=== PATIENT | female | born 1990 | race Hispanic/Latino ===

== ENCOUNTER 2017-09-12 01:55 | Inpatient (IN) | payer OTHER, MEDICAID ==
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
[2017-09-12] MEDS ORDERED: Emtricitabine-Tenofovir 200 mg-300 mg Tab PO STA (06:45)
[2017-09-12] MEDS ORDERED: Emtricitabine-Tenofovir 200 mg-300 mg Tab PO NR (06:45)
[2017-09-12] MEDS ORDERED: cefTRIAXone (Rocephin) 250 mg Inj IM STA (06:45)
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
[2017-09-12 07:27] LABS: RBC URINE < 1 /hpf (0-3); URINE BACTERIA RARE (<OCC); URINE BILIRUBIN NEGATIVE (NEGATIVE); URINE BLOOD NEGATIVE (NEGATIVE); URINE COLOR STRAW (YELLOW); URINE GLUCOSE (UA) NEG (Normal); URINE KETONE NEGATIVE (NEGATIVE); URINE LEUKOCYTE ESTERASE NEG Leu/uL (Negative); URINE PROTEIN NEGATIVE (NEGATIVE); URINE UROBILINOGEN 0.2-1.0 mg/dL (0.2-1.0); WBC URINE < 1 /hpf (0-5)
--- NOTE | 2017-09-12 08:35 | CT ---
PROCEDURE: CT HEAD WITHOUT CONTRAST. HISTORY: head injury, headache COMPARISON: None available. TECHNIQUE: Axial computed tomography images were obtained through the head/brain without intravenous contrast. Radiation dose: Total exam DLP = 956.37 mGy-cm. This CT exam was performed using one or more of the following dose reduction techniques: Automated exposure control, adjustment of the mA and/or kV according to patient size, and/or use of iterative reconstruction technique. FINDINGS: HEMORRHAGE: No intracranial hemorrhage. BRAIN: No mass effect or edema. No atrophy or chronic microvascular ischemic changes. VENTRICLES: Unremarkable. No hydrocephalus. CALVARIUM: Unremarkable. PARANASAL SINUSES: Minimal chronic ethmoid, sphenoid and left maxillary sinusitis. MASTOID AIR CELLS: Unremarkable as visualized. No inflammatory changes. OTHER FINDINGS: None. IMPRESSION: No intracranial mass, hemorrhage or evidence of acute infarct. Preliminary interpretation of this examination was reported by [facility] at 3:16 a.m. on 09/12/2017. There is concurrence of this report with the preliminary interpretation.
[2017-09-12] MEDS ORDERED: cefTRIAXone (Rocephin) 250 mg Inj ONE (08:40)
[2017-09-12 09:04] VITALS: O2SAT 98
[2017-09-12] MEDS ORDERED: Magnesium Hydroxide Susp 30 ml UD PO PRN (13:19)
[2017-09-12] MEDS ORDERED: Alum-Mag Hydrox-Simethicone Susp (30 mL) PO PRN (13:19)
[2017-09-12] MEDS ORDERED: DiphenhydrAMINE 50 mg/ml Inj IM PRN (13:19)
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
[2017-09-12 16:27] LABS: T4 11.6 ug/dl (5.5-11.0)
[2017-09-12 16:41] LABS: THYROID STIMULATING HORMONE 1.1 mIU/ML (0.46-4.68)
--- NOTE | 2017-09-12 18:22 | PCM.BM ---
<Sherin Catalan - Last Filed: 09/12/17 18:21> Treatment Plan Problems - Problems identified on initial assessmt Problem 1 Assessment reference: NA feelings of worthlessness Assessment reference: NA Treatment assets and liabiliti Patient Assests: adapts well, cooperative, resourceful, self-reliant, ADL independent Patient Liabilities: financial problems, poor support system, relationship conflicts, substance abuse, legal issue - Milieu Protocol Maintain good personal hygiene: daily Encourage regular showers, daily Remind patient to perform daily oral care Conduct patient checks and document Observation sheet: Q15 minutes Maintain personal safety: every shift Educate patient to report safety concerns to staff, every shift Monitor environment for contraband/sharps Medication safety: Monitor for expected outcome, potential side effects: every shift, Assess barriers to learning: every shift, Assess readiness for medication education: every shift Milieu Narrative: start pt on clonidine protocol monitor for symptoms of withdrawal start seroquel 200mg with plan to titrate gradually motivational and supportive therapy Discharge/Continuing Care - Treatment Team Participation Patient/Family/SO Statement: start pt on clonidine protocol monitor for symptoms of withdrawal start seroquel 200mg with plan to titrate gradually motivational and supportive therapy <Talita Mccarthy Estefany - Last Filed: 09/16/17 11:27> - Diagnosis (1) Depression Status: Acute Interventions: 09/16/17 11:28 psychotherapy, pharmacotherapy <Laila Norman - Last Filed: 09/16/17 17:02> Treatment assets and liabiliti Patient Assests: adapts well, cooperative, resourceful, self-reliant, ADL independent, physically healthy, negotiates basic needs, cognitively intact Patient Liabilities: live alone (patient is homeless), financial problems, poor support system, relationship conflicts, substance abuse, legal issue Family Contact Family involvement: Family/SO is involved Family contact: Patient agrees to contact, Family has been contacted by patient , Telephone contact initiated by staff Family contact name: ([phone]) Family contacted how many times per week?: 2 Family contact comment: Pad Making Machine Operator spoke with patients sister (Sarah ) to discuss patients progress on 3NP, discharge of 09/16 and aftercare. Pad Making Machine Operator informed patients sister that patient was not agreeable to remaining on 3NP awaiting aftercare. Pad Making Machine Operator emphasized importance of patient securing aftercare (contact information provided at discharge) to reduce risk of future hospitalizations and ensure safety/functioning in the community. Patients sister expressed understanding of the above, denied concerns regarding patients discharge and confirmed that patient will be staying with her temporarily upon discharge. - Goals for Treatment Patient goals for treatment: Patient to continue stabilization on 3NP through medication management and group/supportive therapy. Patient to be encouraged to attend groups regularly to promote self-awareness, sobriety, and improve insight , coping skills and self-esteem. Patient to be provided with referral for appropriate level of aftercare to reduce risk of future hospitalizations and ensure safety in the community. Discharge/Continuing Care - Education Needs Education Needs: Family Medication, Family Coping Skills, Family Community resources, Family Aftercare Safety Plan, Patient Medication, Patient Coping Skills, Patient Community resources, Patient Aftercare Safety Plan - Discharge Discharge Criteria: Tolerates medication w/o severe side effects, Free of Suicidal thoughts, Normal sleep pattern, Ability to care for self, No longer exhibiting s/s of withdrawal, Reduction of target symptoms Discharge to:: Home, With Family (patient will stay with sister temporarily ( currently homeless)) - Treatment Team Participation Discussed with Family/SO: Yes Was Patient/Family/SO present at Treatment Team Meeting: Yes
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
[2017-09-13 09:27] LABS: CHOLESTEROL 130 mg/dL (0-199)
--- NOTE | 2017-09-13 18:02 | PCM.PYCHPN ---
Psychiatric Progress Note - Psychiatric Progress Note Patient seen today, length of contact: PT EVALUATED DISCUSSED WITH TEAM CHART REVIEWED Patient Chief Complaint: Ii STILL FEEL DOWN Problems Identified/Issues Discussed: PT SEEN IN BED, ISOLATIVE , ANHEDONIC, LOW ENERGY, DEPRESSED MOOD AND AFFECT DENIED ANY CURRENT S/H I DENIED PERCEPTUAL DISTURBANCES, NO REPORTED SIDE EFFECTS OF MEDICATIONS Medical Problems: pt reported multiple inpatient psychiatric hospitalizations pt has two previous suicidal attempts by overdose and attempting to jump of the bridge hx of self mutilating behaavior DSM 5 Symptoms Update: BIPOLAR DEPRESSION BORDERLINE PERSONALITY OPIATE USE DISORDER ALCOHOL USE DISORDER Medication Change: No Medical Record Reviewed: Yes Mental Status Examination - Cognitive Function Orientation: Person, Place Attention: WNL Concentration: WNL Association: WNL Fund of Knowledge: Poor - Mood Mood: Depressed, Anxious - Affect Affect: Constricted, Depressed - Speech Speech: Soft - Formal Thought Process Formal Thought Process: Circumstantial Psychotic Thoughts and Behaviors: DENIED PERCEPTUAL DISTURBANCES, NON ELICITED - Suicidal Ideation Suicidal Ideation: No - Homicidal Ideation Homicidal Ideation: No Goal/Treatment Plan - Goal/Treatment Plan Progress Toward Problem(s) and Goals/Treatment Plan: continue with clonidine and ativan and monitor pt for symptoms and signs of withdrawal continue seroquel 200mg with plan to titrate gradually motivational and supportive therapy Estimated Date of D/C: 09/17/17
--- NOTE | 2017-09-14 11:20 | PCM.PYCHPN ---
Psychiatric Progress Note - Psychiatric Progress Note Patient seen today, length of contact: PT EVALUATED DISCUSSED WITH TEAM CHART REVIEWED Patient Chief Complaint: pt annetta remained very depressed,aloof,withdrawn isolating herself in room.pt is able to contract for [employer] but remains with poor insight and need stabilization. DSM 5 Symptoms Update: major depression Medication Change: No Medical Record Reviewed: Yes Mental Status Examination - Cognitive Function Orientation: Person, Place Attention: WNL Concentration: WNL Association: WNL Fund of Knowledge: Poor - Mood Mood: Depressed, Anxious - Affect Affect: Constricted, Depressed - Speech Speech: Soft - Formal Thought Process Formal Thought Process: Circumstantial - Suicidal Ideation Suicidal Ideation: No - Homicidal Ideation Homicidal Ideation: No Goal/Treatment Plan - Goal/Treatment Plan Estimated Date of D/C: 09/17/17
--- NOTE | 2017-09-15 12:55 | PCM.PYCHPN ---
Psychiatric Progress Note - Psychiatric Progress Note Patient seen today, length of contact: PT EVALUATED DISCUSSED WITH TEAM CHART REVIEWED Patient Chief Complaint: pt annetta remained very depressed,aloof,withdrawn isolating herself in room.pt is able to contract for [place] but remains with poor insight and need stabilization. Medication Change: No Medical Record Reviewed: Yes Mental Status Examination - Cognitive Function Orientation: Person, Place Attention: WNL Concentration: WNL Association: WNL Fund of Knowledge: Poor - Mood Mood: Depressed, Anxious - Affect Affect: Constricted, Depressed - Speech Speech: Soft - Formal Thought Process Formal Thought Process: Circumstantial - Suicidal Ideation Suicidal Ideation: No - Homicidal Ideation Homicidal Ideation: No Goal/Treatment Plan - Goal/Treatment Plan Estimated Date of D/C: 09/17/17
[2017-09-16 11:00] VITALS: BP 116/71; PULSE 70
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
[2017-09-16 14:07] VITALS: RESP 16; TEMP 98.1
== END 2017-09-16 14:29 | disposition home or self-care (01) | DRG 885 ==
LOC: H.ER 01:55 → H.ERHOLD 09:02 → H.PSYCH 12:22
PROVIDERS: ADMIT Psychiatry & Neurology Psychiatry; ATTEND Psychiatry & Neurology Psychiatry
PROC: GZ51ZZZ Individual Psychotherapy, Behavioral (ICD-10-PCS; 2017-09-12)
PROC: 3E0 Administration, Physiological Systems and Anatomical Regions, Introduction (ICD-10-PCS; 2017-09-12)
PROC: GZHZZZZ Group Psychotherapy (ICD-10-PCS; principal; 2017-09-16)
DX: F31.9 Bipolar disorder, unspecified (principal); S09.90XA Unspecified injury of head, initial encounter; R45.851 Suicidal ideations; F10.239 Alcohol dependence with withdrawal, unspecified; F11.23 Opioid dependence with withdrawal; G40.909 Epilepsy, unspecified, not intractable, without status epilepticus; F43.10 Post-traumatic stress disorder, unspecified; F60.3 Borderline personality disorder; Z23 Encounter for immunization; Z59.0 Homelessness; Z72.0 Tobacco use; Z91.410 Personal history of adult physical and sexual abuse; X58.XXXA Exposure to other specified factors, initial encounter; Y93.9 Activity, unspecified; Y92.9 Unspecified place or not applicable; Z91.5 Personal history of self-harm